=== PATIENT | male | born 1950 | race Two or more races ===

== ENCOUNTER 2024-10-10 06:16 | Inpatient (IN) | payer MEDICARE, MEDICAID ==
[~2024-10-10] VITALS: Ht 162.6 cm; Wt 85.7 kg
[~2024-10-10 06:16] MED LIST: ASPI81CH59 PO; MET50T PO; OMEP-448 PO; ROSU20TA14 PO; TAMS0.4C39 PO
[2024-10-10] MEDS: ceFAZolin 2 GM/D5W50ml 50 ML IV ONE (06:27)
[2024-10-10] MEDS: BUPIVACAINE 0.25% INJ 50ML VIAL ONE (06:51)
[2024-10-10] MEDS: TRANEXAMIC ACID 20 ML ONE (06:51)
[2024-10-10] MEDS: CEFEPIME 1GM/ 50ML 0 ML IV ONE (06:52)
[2024-10-10] MEDS ORDERED: LIDOCAINE 1% INJ PF 5ML AMP ONE (06:57)
[2024-10-10] MEDS ORDERED: KETOROLAC TROMETH 30 MG/ML 1ML VIAL ONE (06:57)
[2024-10-10] MEDS ORDERED: ROCURONIUM 10MG/ML 10ML VIAL IV ONE (06:57)
[2024-10-10] MEDS ORDERED: SUGAMMADEX 200mg/2ml Vial (100MG/ML) IV ONE (06:57)
[2024-10-10] MEDS ORDERED: GLYCOPYRROLATE 0.2 MG/ML 1ML VIAL ONE (06:57)
[2024-10-10] MEDS ORDERED: ONDANSETRON HCL 4 MG/2 ML VIAL ONE (06:57)
[2024-10-10] MEDS ORDERED: PROPOFOL 10 MG/ML 20 ML IV ONE (06:57)
[2024-10-10] MEDS ORDERED: LIDOCAINE 2% (LOCAL ANESTH.) PF 5ml SDV ONE (06:57)
[2024-10-10] MEDS ORDERED: fentaNYL CITRATE 100 MCG/2 ML VL ONE (06:59)
[2024-10-10] MEDS ORDERED: KETAMINE 50mg/ML 1ml syringe ONE (06:59)
[2024-10-10] MEDS: CELECOXIB 100 MG CAP PO ONE (07:00)
[2024-10-10] MEDS: ACETAMINOPHEN IV 1000 MG/100ML (10MG/ML) IV PRN (07:00)
[2024-10-10] MEDS: GABAPENTIN 300 MG CAP PO ONE (07:00)
[2024-10-10] MEDS: KETOROLAC TROMETH 30 MG/ML 1ML VIAL ONE (07:02)
[2024-10-10] MEDS: CLINDAMYCIN 600MG IV 50 ML IV ONE (07:02)
[2024-10-10] MEDS: ACETAMINOPHEN IV 100 ML IV ONE (07:12)
[2024-10-10] MEDS: CELECOXIB 100 MG CAP ONE (07:12)
[2024-10-10] MEDS: GABAPENTIN 300 MG CAP ONE (07:12)
[2024-10-10] MEDS ORDERED: hydrALAZINE HCL 20 MG/ML VL ONE (08:29)
[2024-10-10] MEDS: VANCOMYCIN HCL 1000 MG VL ONE (10:11)
[2024-10-10 10:46] VITALS: PULSE 65; RESP 14; O2SAT 95
[2024-10-10] MEDS ORDERED: HYDROmorphone HCL 2 MG/ML VL/or syr IV PRN ×2 (11:00→11:15)
[2024-10-10] MEDS ORDERED: hydrALAZINE HCL 20 MG/ML VL IV PRN (11:00)
[2024-10-10] MEDS ORDERED: fentaNYL CITRATE 100 MCG/2 ML VL IV PRN (11:00)
[2024-10-10] MEDS ORDERED: FLUMAZENIL 0.1 MG/ML INJ 10ML MDV IV PRN (11:00)
[2024-10-10] MEDS ORDERED: ONDANSETRON HCL 4 MG/2 ML VIAL IV PRN ×2 (11:00→11:15)
[2024-10-10] MEDS ORDERED: NALOXONE HCL 0.4 MG/ML VIAL IV PRN (11:00)
[2024-10-10] MEDS ORDERED: HYDROcodone-ACET 5/325MG TAB PO PRN (11:15)
[2024-10-10] MEDS ORDERED: NITROGLYCERIN 0.4 MG SL TAB SL PRN (11:15)
[2024-10-10] MEDS ORDERED: ACETAMINOPHEN 325 MG TAB PO PRN (11:15)
[2024-10-10] MEDS ORDERED: MORPHINE SULFATE INJ 2 MG/ml SYRG IV PRN (11:15)
[2024-10-10] MEDS ORDERED: BISACODYL 5 MG EC TAB PO PRN (11:15)
--- NOTE | 2024-10-10 11:31 | DVHOP2 ---
Operative Report - 2 Report Details Date: 10/10/24 Preop Diagnosis: Left Shoulder rotator cuff arthropathy Postop Diagnosis: Left shoulder rotator cuff arthropathy Surgeon: Saul Rodriguez MD Certified Mortician: Julián Bean Physician Certified Mortician Anesthesiologist: Praful Good CRNA Anesthesia: General, Regional Implant: Fx shoulder system, eight stem, 15 mm full wedge augment +3 with peripheral screws and central post, 36 mm glenosphere, 3 mm retained liner Consent: The patient was informed of the risks and benefits of the procedure. These include but are not limited to complications of anesthesia, postoperative infection, incomplete relief of symptoms, recurrence of symptoms, damage to blood vessels, nerves and tendons, deep venous thrombosis, pulmonary embolism and possible need for repeat surgery in the future. Complications: None Estimated Blood Loss: Less than 100 mL Indications for Surgery: The patient is a 74-year-old male who presented to the clinic with a history of left shoulder pain. Clinical and radiological evaluation demonstrated rotator cuff arthropathy. Nonoperative and operative management options were discussed. Surgery in the form of reverse shoulder arthroplasty was discussed with him and his family. Benefits, risks and treatment alternatives were discussed. Specific complications of the surgery such as neurovascular injury, infection, arthrofibrosis, loss of limb or life were discussed. He decided to proceed with the surgical option. Name of Procedure Performed Left reverse shoulder arthroplasty with open biceps tenodesis Procedure Details Procedure Details: The patient was identified in the preoperative holding area and the surgical site was marked. The consent was verified. The patient was brought into the operating room and placed supine on the operating table. General anesthesia was administered. The patient was brought into the beachchair position at 45 degrees angle. The extremity was prepped and draped in the usual sterile manner with Betadine and ChloraPrep. A timeout was called out to confirm the identity of the patient, the nature of surgery, the site of surgery, development of implants and x-rays and allergies to medications. All the bony prominences were appropriately padded Exposure: A standard deltopectoral approach was used. An incision was made from the superior portion of the coracoid to the upper arm lateral to the axillary line. The skin and the subcutaneous tissue were dissected. The deep fascia was incised. The cephalic vein was identified. The coracoid was identified and the conjoined tendon was also identified. The pectoralis tendon, approximately 1 cm was released. The biceps tendon was identified and tenodesis was carried out. This was sutured to the pectoralis major tendon with the help of FiberWire suture and was cut proximally. Hickey retractors were inserted. Adequate exposure was noted. The deltoid was released with the help of a Blas elevator for better exposure. The subscapularis tendon was identified. The subscapularis tendon was released. Circumflex arteries and veins were coagula aram. This was whipstitched for later identification and possible repair. The humeral head was now exposed with external rotation and release of the inferior capsule. This was gently dislocated using a Darrach retractor. Significant arthritis with full-thickness cartilage defect was noted. Some osteophytes were also noted. A retractor was inserted below the CA ligament as well. There was a complete tear of the rotator cuff with bare footprint. Humeral cut: The retroversion was set to 30 degrees. An external guide was used and affixed to the bone with the help of guide pins. Next, a saw was used to create the humeral cut. This was just above the rotator cuff footprint. Next, a small drill was used to find the intramedullary canal. Next, the humeral side was now prepared. This was now reamed up to 14 mm. Glenoid exposure and implantation of glenoid prosthesis: A Darrach retractor was then inserted to retract the humeral head and expose the glenoid. Release of the anterior and posterior capsule was carried out. Release of the middle and inferior glenohumeral ligament was carried out. Superior labrum and biceps were removed. Significant cartilage damage of the glenoid was noted. Significant superior erosion was noted, as per preoperative planning it was 25. A tug test was performed to confirm the position of the axillary nerve which was out of the surgical field. The inferior capsule was left intact and was released only with the help of a blunt elevator. Next, the center of the glenoid was marked with the help of a Bovie using the biceps and the coracoid as landmarks. Next a guide was inserted, a guidewire was inserted through the central portion. This was found to be in anatomic location, slightly inferior to the center. Next the central reamer was inserted. Next the hand-held peripheral reamer was inserted. The periphery was reamed, minimal cartilage was removed. Appropriate soft tissue resection was carried out. Inferior glenoid reaming was done to ensure that the 15 degree augment sit securely. Next the baseplate was inserted with the help of an environmental sciences professor A central post was applied to the final implant on the back table and inserted with gentle taps. It was rotated to align the screws in the appropriate directions. Next a drill guide was used to drill the hole for the screws. Locking and nonlocking screws were used for excellent compression and fixation. The glenosphere was now implanted on top of the baseplate over the guidewire with the screw. The screw was rotated over the glenosphere for excellent fixation. No impingement was noted. A Barbara was used to test the stability of baseplate as well as the glenosphere and was found to be very secure. Next, a trial stem was inserted. The patient had a small medullary canal. The proximal metaphysis was opened up with a rongeur as well. Next, a provisional soft tissue tensioning assessment was done with an attempt to reduce with a 3 mm trial liner. This was found to be adequate with 1 mm of shuck. The final stem and liner was opened up. The joint was now trialed again with a 3 mm liner and was noticed to be excellent. A final 3 mm implant was opened up and inserted on the humeral stem. This was tapped and excellent fixation was noted. Excellent stability and range of motion was noted, abduction of 120 and flexion up to 120 degrees. The shoulder did not dislocate with adduction, internal rotation and extension or with abduction and external rotation. Shuck test was acceptable with approximately 1 mm of gap with manual longitudinal traction. The fixation was tested with the help of a Barbara clamp. Excellent fixation was noted. Irrigation was given with bulb syringe lavage with bacitracin and normal saline, Betadine and vancomycin powder was applied as well. All bony debris was also removed. C-arm was used throughout the procedure for evaluation of guidewire, humeral cut, baseplate and glenosphere position and finally humerus stem position and joint reduction. The subscapularis was approximated with the help of looped Ethibond sutures through the bone tunnel. Some approximation was noted. The deep tissue, skin and the subcutaneous tissue were closed with 0 Vicryl, 2-0 Vicryl, 3-0 Monocryl and jesús. Sterile dressing was applied. The patient was placed in a shoulder immobilizer. Condition Good Disposition Still a Patient SAUL RODRIGUEZ MD Oct 10, 2024 11:30
[2024-10-10 12:00] VITALS: BP 146/77; PULSE 66; RESP 16; TEMP 96.6; O2SAT 96
[2024-10-10 12:35] VITALS: BP 146/76; PULSE 66; RESP 16; TEMP 96.6; O2SAT 96
--- NOTE | 2024-10-10 13:14 | DVH ---
EXAM: XY L SHOULDER 1V XRAY CLINICAL INDICATION: s/p left reverse shoulder arthroplasty TECHNIQUE: XY L SHOULDER 1V XRAY Comparison: None FINDINGS/IMPRESSION: There is no evidence of acute fracture or dislocation. Left total shoulder artrhoplasty.
[2024-10-10] MEDS: LACTATED RINGER'S 1,000 ML IV SCH (13:32)
[2024-10-10] MEDS: ceFAZolin 1GM/50ML 50 ML IV SCH (13:33)
[2024-10-10 13:52] LABS: Chloride 104 mmol/L (98-107); Potassium 3.6 mmol/L (3.5-5.1); Sodium 139 mmol/L (136-145)
[2024-10-10 13:53] LABS: Anion Gap 8 (5-15); Calcium 9.6 mg/dL (8.7-10.4); Carbon Dioxide 27 mmol/L (20-31)
[2024-10-10 13:54] LABS: Hematocrit 47.0 % (41.0-53.0); Hemoglobin 16.0 g/dL (13.5-17.5); Mean Corpuscular Hemoglobin 29.1 pg (28.0-32.0); Mean Corpuscular Volume 85.5 fL (80.0-100.0); Nucleated Red Blood Cells % 0.1 %
[2024-10-10 13:58] LABS: BUN/Creatinine Ratio 16.8 (10.0-20.0); Blood Urea Nitrogen 16 mg/dL (9-23)
[2024-10-10 13:59] LABS: Glucose 135 mg/dL (74-106)
[2024-10-10] MEDS ORDERED: PHENYLEPHRINE HCL 10 MG/ML VL IV ONE (14:59)
[2024-10-10 16:30] VITALS: BP 140/72; PULSE 74; RESP 14; TEMP 97.5; O2SAT 96
--- NOTE | 2024-10-10 17:26 | DVH ---
FLUOROSCOPY, OPERATING ROOM PROCEDURE REASON FOR EXAM: LEFT REVERSE TOTAL SHOULDER ARTHROPLASTY FLUOROSCOPY TIME: 11.6 seconds PEAK SKIN DOSE: 0.87 mGy FINDINGS: Fluoroscopy was provided for SARINA AMBRIZ fluoroscopic spot images are submitted to BEATRIZ QUIROZ. IMPRESSION: Intraoperative fluoroscopic assistance. Please refer to the operative report for a description of th e findings.
[2024-10-10] MEDS: HYDROcodone-ACET 10/325MG TAB PO PRN (17:50)
[2024-10-10 20:00] VITALS: PULSE 82
[2024-10-10 21:00] VITALS: BP 146/79; PULSE 81; RESP 18; TEMP 98.3; O2SAT 93
[2024-10-10] MEDS: DOCUSATE SOD 100 MG CAP PO SCH (22:04)
[2024-10-10] MEDS: ENOXAPARIN SOD 30 MG/0.3 ML SYRINGE SC SCH (22:07)
[2024-10-11 05:00] VITALS: BP 145/75; PULSE 69; RESP 18; TEMP 97.9; O2SAT 95
--- NOTE | 2024-10-11 07:19 | DVHDS2 ---
Discharge Summary Date of Admission Oct 10, 2024 at 11:03 Date of Discharge: Oct 11, 2024 Labs/Diagnostic Data: Laboratory Results Test 10/10/24 13:27 White Blood Count 11.4 10^3/uL (4.4-10.8) Red Blood Count 5.49 10^6/uL (4.5-5.90) Hemoglobin 16.0 g/dL (13.5-17.5) Hematocrit 47.0 % (41.0-53.0) Mean Corpuscular Volume 85.5 fL (80.0-100.0) Mean Corpuscular Hemoglobin 29.1 pg (28.0-32.0) Mean Corpuscular Hemoglobin Concent 34.1 g/dL (32.0-36.0) Red Cell Distribution Width 14.2 % (11.8-14.3) Platelet Count 166 10^3/uL (140-450) Mean Platelet Volume 9.3 fL (6.9-10.8) Neutrophils (%) (Auto) 92.3 % (37.0-80.0) Lymphocytes (%) (Auto) 6.4 % (10.0-50.0) Monocytes (%) (Auto) 1.1 % (0.0-12.0) Eosinophils (%) (Auto) 0.1 % (0.0-7.0) Basophils (%) (Auto) 0.1 % (0.0-2.0) Neutrophils # (Auto) 10.5 10 ^3/uL (1.6-8.6) Lymphocytes # (Auto) 0.7 10 ^3/uL (0.4-5.4) Monocytes # (Auto) 0.1 10 ^3/uL (0-1.3) Eosinophils # (Auto) 0 10 ^3/uL (0-0.8) Basophils # (Auto) 0 10 ^3/uL (0-0.2) Nucleated Red Blood Cells 0.1 % Sodium Level 139 mmol/L (136-145) Potassium Level 3.6 mmol/L (3.5-5.1) Chloride Level 104 mmol/L (98-107) Carbon Dioxide Level 27 mmol/L (20-31) Anion Gap 8 (5-15) Blood Urea Nitrogen 16 mg/dL (9-23) Creatinine 0.95 mg/dL (0.700-1.30) Glomerular Filtration Rate Calc 83 mL/min (>90) BUN/Creatinine Ratio 16.8 (10.0-20.0) Serum Glucose 135 mg/dL (74-106) Calcium Level 9.6 mg/dL (8.7-10.4) Other Laboratory Tests 10/10/24 13:27 Brief Hx & Hospital Course: PATIENT WAS BROUGHT TO THE HOSPITAL YESTERDAY TO UNDERGO A LEFT REVERSE SHOULDER ARTHROPLASTY, HE TOLERATED THE PROCEDURE WELL WITHOUT COMPLICATIONS AND WAS KEPT OVERNIGHT FOR POSTOPERATIVE OBSERVATION. HE HAS REMAINED MEDICALLY STABLE DENYING ANY OVERNIGHT EVENTS AND REPORTS SOME POSTOPERATIVE SHOULDER PAIN THAT IS BEING WELL MANAGED WITH THE HELP OF PAIN MEDICATION. PATIENT NOTES THAT HE WAS ABLE TO GET UP AND WALK WITH THE HELP OF PHYSICAL THERAPY AND HIS WALKER AND WAS ABLE TO GET DOWN THE GILL AROUND THE NURSES STATION AND BACK TO HIS BED WITH MINIMAL ISSUES. PATIENT WAS OTHERWISE FEELING WELL DENYING ANY OTHER COMPLAINTS OR CONCERNS DURING MY EVALUATION AND IS READY TO GO HOME. Condition at Discharge: Good Final Diagnosis/Problems List Left shoulder rotator cuff arthropathy Discharge Disposition: Home Discharge Instruct/Medications Diet: Regular Activity: See Comment Activity comment: Patient to remain in his shoulder immobilizer for six weeks from the date of surgery Follow Up/Referral: I instructed the patient to follow up with our office in 10-14 days for his 1st postoperative evaluation Medications: Rx sent via our outpatient EMR system Scheduled Aspirin (Aspirin Low Dose), 81 MG PO DAILY, (Reported) Metoprolol Tartrate (Lopressor Tablet), 50 MG PO BID, (Reported) Omeprazole (Omeprazole Dr), 40 MG PO DAILY, (Reported) Tamsulosin Hcl (Tamsulosin Hcl), 0.4 MG PO QAM, (Reported) Miscellaneous Medications Rosuvastatin Calcium (Crestor), 20 MG PO, (Reported) Discharge Statement: "Patient was advised to return to the ER or call 911 if any headaches, dizziness, shortness of breath, chest pain, abdominal pain, bleeding, fevers, or worsening of medical condition. Patient was counseled about treatment plan, medications, possible side effects, patientverbalized understanding. All questions were answered to the best of my ability. This discharge took greater then 30 minutes in planning, reviewing documentation, counseling the patient, and discussing with other team members." ASSESSMENT ASSESSMENT Assessment Left shoulder rotator cuff arthropathy ARNALDO OATES Oct 11, 2024 07:19
--- NOTE | 2024-10-11 07:21 | DVHPN2 ---
Progress Note - Dictate Date Seen: Oct 11, 2024 Medical Necessity Reason Pt with a Central, PICC or Fol: No Subjective Patient was lying comfortably in bed during my evaluation reports some postoperative shoulder pain that is being well managed with the help of pain medication. Patient reports that he was able to get up and walk with the help of physical therapy yesterday and felt stable and secure with minimal issues. Patient is otherwise feeling well denying any other complaints or concerns during my evaluation and is ready to go home. vital signs Vital Sign Date Time Temp Pulse Resp B/P (MAP) Pulse Ox O2 Delivery O2 Flow Rate FiO2 10/11/24 05:00 97.9 69 18 145/75 (98) 95 97.9 10/10/24 20:00 Room Air* 0 21 Total Intake and Output 10/10/24 10/10/24 10/11/24 15:00 23:00 07:00 Intake Total 50 ml 50 ml 230 ml Balance 50 ml 50 ml 230 ml medications Current Medications Medications Dose Ordered Sig/Srinath Route Start Time Stop Time Status Last Admin Dose Admin Oxycodone HCl 10 mg ONCE PRN PO 10/10/24 11:00 Acetaminophen 650 mg Q6HP PRN PO 10/10/24 11:15 Acetaminophen/ Hydrocodone Bitart 1 tab Q4HP PRN PO 10/10/24 11:15 Hydromorphone HCl 1 mg Q2HP PRN IV 10/10/24 11:15 Ondansetron HCl 4 mg Q6HP PRN IV 10/10/24 11:15 Docusate Sodium 100 mg Q12HR PO 10/10/24 22:00 10/10/24 22:04 100 MG Bisacodyl 5 mg Q12HP PRN PO 10/10/24 11:15 Enoxaparin Sodium 30 mg Q12HR SC 10/10/24 22:00 10/10/24 22:07 30 MG Acetaminophen/ Hydrocodone Bitart 1 tab Q4HP PRN PO 10/10/24 11:15 10/10/24 17:50 1 TAB Nitroglycerin 0.4 mg Q5MINP PRN SL 10/10/24 11:15 Morphine Sulfate 2 mg Q30M PRN IV 10/10/24 11:15 objective A&O x4 in no acute distress Shoulder range of motion grossly limited with pain on movement Aquacel dressing clean, dry, and intact No distal edema or calf tenderness to palpation Neurovascularly intact with cap refill less than 2 seconds laboratory and microbiology Laboratory Tests 10/10/24 13:27 Test 10/10/24 13:27 Range/Units Serum Glucose 135 H 74-106 mg/dL Assessment/Plan Patient to be discharged home and advised to remain in his shoulder immobilizer for six weeks from his date of surgery. I advised the patient to follow up with our office in 10-14 days for his 1st postoperative evaluation and to maintain his dressings clean, dry, and intact and to call our office if he has any further questions or concerns. Rx sent via our outpatient EMR system. Patient understood and agreed. Plan discussed with: Patient ARNALDO OATES Oct 11, 2024 07:21
[2024-10-11 08:00] VITALS: PULSE 61
[2024-10-11 09:00] VITALS: BP 138/81; PULSE 64; RESP 16; TEMP 97.6; O2SAT 97
[2024-10-11 09:15] VITALS: BP 138/87; PULSE 64; RESP 16; TEMP 97.6; O2SAT 97
[2024-10-11 13:00] VITALS: BP 149/83; PULSE 83; RESP 16; TEMP 97.9; O2SAT 94
== END 2024-10-11 15:00 | disposition home or self-care (01) | DRG 483 ==
LOC: SUR 06:16 → OVERFLOW 11:03 → TELE-WESTW 11:59
PROVIDERS: ADMIT Orthopaedic Surgery Sports Medicine; ATTEND Orthopaedic Surgery Sports Medicine
PROC: 0LS40ZZ Reposition Left Upper Arm Tendon, Open Approach (ICD-10-PCS; 2024-10-10)
PROC: 0RRK00Z Replacement of Left Shoulder Joint with Reverse Ball and Socket Synthetic Substitute, Open Approach (ICD-10-PCS; principal; 2024-10-10 07:35)
DX: M75.122 Complete rotator cuff tear or rupture of left shoulder, not specified as traumatic (principal); M19.012 Primary osteoarthritis, left shoulder
CPT/HCPCS: 36415; 73020; 73030; 76000; 80048; 85025; 86850; 86900; 86901; 97110; 97116; 97163; 97530; G0378; J0131; J1100; J1885; J2003; J2405; J2704; J3490